=== PATIENT | female | born 1935 | race Caucasian/White ===

== ENCOUNTER 2019-03-24 11:45 | Emergency (ER) | payer OTHER ==
[~2019-03-24] VITALS: Ht 172.7 cm; Wt 83.9 kg
[2019-03-24] MEDS ORDERED: MOBIC7.5 MG PO (13:42)
[2019-03-24] MEDS ORDERED: ACETAMINOPHEN-1 EAC1 PO (13:42)
[2019-03-24 14:31] VITALS: BP 165/69
== END 2019-03-24 15:15 | disposition home or self-care (01) ==
LOC: ER 11:45
DX: S83.8X2A Sprain of other specified parts of left knee, initial encounter (principal); I10 Essential (primary) hypertension; E11.9 Type 2 diabetes mellitus without complications; E78.00 Pure hypercholesterolemia, unspecified; W18.39XA Other fall on same level, initial encounter; Y92.89 Other specified places as the place of occurrence of the external cause; Y93.89 Activity, other specified; Y99.8 Other external cause status

== ENCOUNTER 2020-04-21 13:00 | Inpatient (IN) | payer OTHER ==
[~2020-04-21] VITALS: Ht 157.5 cm; Wt 78.7 kg
[~2020-04-21 13:00] MED LIST: ACETAMINOPHEN-1 EAC1 PO; MOBIC7.5 MG PO
[2020-04-21 13:04] VITALS: BP 184/65
[2020-04-21 13:31] LABS: ABSOLUTE NEUTROPHILS 6.4 thou/uL (1.4-8.2); BASOPHILS 0.3 % (0.0-2.0); EOSINOPHILS 1.5 % (0.0-3.0); HEMATOCRIT 38.4 % (37.0-47.0); HEMOGLOBIN 13.4 gm/dL (12.0-15.0); LYMPHOCYTES 13.1 % (24.0-44.0); MCHC 34.9 g/dL (28.0-37.0); MCV 88.9 fL (80.0-100.0); MONOCYTES 8.9 % (1.0-8.0); PLATELET COUNT 216 thou/uL (150-400); POLYS 76.2 % (36.0-66.0); RBC 4.31 mil/uL (4.20-5.00); WBC 8.4 thou/uL (4.0-11.0)
[2020-04-21 13:43] LABS: ANION GAP 6 mmol/L (7-16); BUN 26 mg/dL (7-18); CALCIUM 9.3 mg/dL (8.5-10.1); CHLORIDE 100 mmol/L (98-107); CO2 32 mmol/L (21-32); GLUCOSE 127 mg/dL (74-106); POTASSIUM 3.3 mmol/L (3.5-5.1); SODIUM 138 mmol/L (136-145)
[2020-04-21 13:49] LABS: ALBUMIN 3.5 g/dL (3.4-5.0); SGOT 17 U/L (15-37); SGPT 19 U/L (30-65); TOTAL BILIRUBIN 0.5 mg/dL (0.2-1.0); TOTAL PROTEIN 7.5 g/dL (6.4-8.2); TROPONIN-I <0.06 ng/mL (<0.06)
[2020-04-21 14:02] LABS: APTT 23.1 Seconds (24.5-32.8); PROTIME 9.7 Seconds (9.3-11.4)
[2020-04-21] MEDS ORDERED: LISINOPRIL40 MG PO (15:34)
[2020-04-21] MEDS ORDERED: K-DUR10 MEQ PO (15:35)
[2020-04-21] MEDS ORDERED: LIPITOR 20 MG T20 M1 PO (15:35)
[2020-04-21] MEDS ORDERED: GLUCOPHAGE XR750 MG PO (15:35)
[2020-04-21] MEDS ORDERED: TRIAMTERENE-HC1 EAC3 PO (15:36)
[2020-04-21] MEDS ORDERED: MAGNESIUM500 MG PO (15:37)
[2020-04-21] MEDS ORDERED: ASPIR 8181 M1 PO (15:37)
[2020-04-21] MEDS ORDERED: MULTIVITAMINS1 EAC7 PO (15:37)
[2020-04-21 20:09] VITALS: BP 158/66
[2020-04-21 20:25] LABS: URINE BILIRUBIN NEGATIVE (Negative); URINE BLOOD NEGATIVE (Negative); URINE CLARITY CLEAR; URINE COLOR YELLOW; URINE GLUCOSE-RANDOM* NEGATIVE (Negative); URINE KETONES NEGATIVE (Negative); URINE LEUKOCYTES-REFLEX NEGATIVE (Negative); URINE NITRITE-REFLEX NEGATIVE (Negative); URINE PROTEIN (DIPSTICK) NEGATIVE (Negative); URINE UROBILINOGEN 0.2 E.U./dl (0.2-1.0)
[2020-04-21 21:15] VITALS: BP 147/85
--- NOTE | 2020-04-21 23:06 | NUR ---
PATIENT IS A NEW ADMISSION TO THE UNIT THIS SHIFT. SHE ARRIVED VIA CART FROM THE ER AND WAS TRANSFERRED TO THE BED WITHOUT INCIDENT. PATIENT IS ALERT AND ORIENTED AND ABLE TO PARTICIPATE IN ADMISSION. NIH TAKEN WITH PATIENT SCORING PRIMARILY FOR RIGHT SIDED WEAKNESS. NURSE TO COMPLETE ADMISSION PROCESS AND INITIATE PLAN OF CARE.
[2020-04-22 04:45] VITALS: BP 164/71
[2020-04-22 05:30] LABS: ANION GAP 10 mmol/L (7-16); BUN 26 mg/dL (7-18); CALCIUM 9.2 mg/dL (8.5-10.1); CHLORIDE 103 mmol/L (98-107); CHOLESTEROL 132 mg/dL (<200); CO2 27 mmol/L (21-32); GLUCOSE 142 mg/dL (74-106); HDL CHOLESTEROL 33 mg/dL (>40); LDL CHOLESTEROL 59 mg/dL (<100); POTASSIUM 3.5 mmol/L (3.5-5.1); SODIUM 140 mmol/L (136-145); TRIGLYCERIDE 204 mg/dL (<150); VLDL 41 mg/dL (<40)
[2020-04-22 05:32] LABS: SERUM ASSESSMENT Clear
--- NOTE | 2020-04-22 07:26 | EKG ---
[facility] [place] [address] ELECTROCARDIOGRAM REPORT Name: OZZY MONSIVAIS Room #: 210-P ADM IN M.R.#: [id number] Admission: 04/21/20 Attend Phys: Shirin Mosley MD Discharge: Date of : 37 Report #: [id number] THIS REPORT FOR: cc: Nahomy Cordero MD,Nahomy Ellis,Gerard Wall MD [facility] ~ THIS REPORT FOR: //name// [facility] ED Test Date: 2020-04-21 Test Time: 13:24:46 Pat Name: OZZY MONSIVAIS Department: Room: 210 Gender: F Staking Engineer: tasneem : 1935 Requested By: Robson Rai Order Number: [id number] MD: Gerard Ellis Measurements Intervals [place] Rate: 70 P: 59 AK: 167 QRS: 32 QRSD: 88 T: 84 QT: 401 QTc: 433 Interpretive Statements Sinus rhythm Atrial premature complexes Nonspecific ST segment abnormality Baseline wander in lead(s) V6 No previous ECG available for comparison Electronically Signed On 04-22-2020 7:25:53 CDT by Gerard Ellis [email or web address] <ELECTRONICALLY SIGNED> By: Gerard Ellis MD, [facility] 04/22/20 0725 1324 1324 Gerard Ellis MD, [facility] /EPI
[2020-04-22 08:00] VITALS: BP 177/87
--- NOTE | 2020-04-22 10:32 | 2DMMODE ---
[facility] [place] [address] 2 D/M-MODE ECHOCARDIOGRAM Name: OZZY MONSIVAIS Room #: 210-P ADM IN M.R.#: [id number] Admission: 04/21/20 Attend Phys: Shirin Mosley MD Discharge: Date of : 37 Report #: [id number] THIS REPORT FOR: cc: Nahomy Cordero MD, Paula V. MD Park, Jin S. MD ~ APPROVED REPORT Study performed: 04/22/2020 08:56:45 EXAM: Comprehensive 2D, Doppler, and color-flow Echocardiogram Patient Location: Bedside Room #: 210 Status: routine BSA: 1.86 HR: 62 bpm BP: 164/71 mmHg Rhythm: NSR Other Information Study Quality: Good Indications CVA/TIA Diabetes Hypertension/HDD Echo Enhancing Agent Indication: Rule out Shunt Agent(s) / Amount(s) Used: Agitated Saline 7 cc 2D Dimensions IVSd: 9.99 (7-11mm) LVOT Diam: 20.17 (18-24mm) LVDd: 51.72 mm PWd: 9.13 (7-11mm) Ascending Ao: 29.64 (22-36mm) LVDs: 37.67 (25-40mm) Aortic Root: 34.71 mm IVC: 17.00 mm Volumes Left Atrial Volume (Systole) Single Plane 4CH: 49.00 mL Single Plane 2CH: 41.66 mL LA ESV Index: 28.00 mL/m2 Aortic Valve [facility] [address] [place] [address] 2 D/M-MODE ECHOCARDIOGRAM Name: OZZY MONSIVAIS Room #: 210-P [facility] IN M.R.#: [id number] Admission: 04/21/20 Attend Phys: Shirin Mosley, Discharge: Date of : 37 Report #: [id number] AoV Peak Dru.: 1.69 m/s AO Peak Gr.: 11.46 mmHg LVOT Max P.23 mmHg LVOT Max V: 1.03 m/s SUDHA Vmax: 1.94 cm2 Mitral Valve E/A Ratio: 0.8 MV Decel. Time: 269.23 ms MV E Max Dru.: 1.05 m/s MV A Dru.: 1.26 m/s MV PHT: 78.08 ms IVRT: 152.25 ms Pulmonary Valve PV Peak Dru.: 1.09 m/s PV Peak Gr.: 4.76 mmHg Pulmonary Vein P Vein S: 0.54 m/s P Vein A: 0.37 m/s P Vein D: 0.31 m/s P Vein A Dur.: 115.3 msec P Vein S/D Ratio: 1.74 Tricuspid Valve TR Peak Dru.: 2.65 m/s TR Peak Gr.: 28.01 mmHg PA Pressure: 33.00 mmHg Left Ventricle The left ventricle is normal size. There is normal LV segmental wall motion. There is normal left ventricular wall thickness. The left ventricular systolic function is normal. The left ventricular ejection fraction is within the normal range. LVEF is 55-60%. Grade I - abnormal relaxation pattern. Right Ventricle The right ventricle is normal size. The right ventricular systolic function is normal. Atria The left atrium size is normal. Injection of bubbles documented no interatrial shunt. The right atrium size is normal. Aortic Valve The aortic valve is normal in structure. No aortic regurgitation is present. There is no aortic valvular stenosis. Mitral Valve [facility] [address] [place] [address] 2 D/M-MODE ECHOCARDIOGRAM Name: OZZY MONSIVAIS Room #: 210-P ADM IN .R.#: [id number] Admission: 04/21/20 Attend Phys: Shirin Mosley, Discharge: Date of : 37 Report #: [id number] The mitral valve is normal in structure. There is no mitral valve regurgitation noted. No evidence of mitral valve stenosis. Tricuspid Valve The tricuspid valve is normal in structure. There is trace tricuspid regurgitation. Estimated PAP 33 mmHg. There is mild pulmonary hypertension. Pulmonic Valve The pulmonary valve is normal in structure. Trace pulmonic regurgitation. Great Vessels The aortic root is normal in size. IVC is normal in size and collapses >50% with inspiration. Pericardium There is no pericardial effusion. <Conclusion> The left ventricle is normal size. There is normal left ventricular wall thickness. The left ventricular systolic function is normal. The right ventricle is normal size. The left atrium size is normal. Injection of bubbles documented no interatrial shunt. The aortic valve is normal in structure. There is no mitral valve regurgitation noted. There is trace tricuspid regurgitation. Estimated PAP 33 mmHg. <ELECTRONICALLY SIGNED> By: Deric Rodriguez MD 04/22/20 1031 1031 1031 Deric Rodriguez MD /INF
[2020-04-22 12:00] VITALS: BP 152/70
[2020-04-22 12:43] LABS: TSH 3.483 uIU/mL (0.358-3.740)
[2020-04-22 13:29] LABS: FOLIC ACID 76.1 ng/mL (8.6-58.9)
--- NOTE | 2020-04-22 15:45 | NUR ---
AAOX4. MRI SPINE TODAY. RIGHT EXTREMITIES NOTABLY WEAK, UNCOORDINATED. SR WITH PAC'S PER TELE. WORKING WITH PT, OT, AND SPEECH. DR. WATSON CONSULTED. ASSISTED TO BSC FOR LARGE BM. FALL PRECAUTIONS IN PLACE. WILL CONTINUE TO FOLLOW CLOSELY.
[2020-04-22 16:00] VITALS: BP 182/65
[2020-04-22 20:28] VITALS: BP 179/84
--- NOTE | 2020-04-23 03:24 | NUR ---
ASSUMED PATIENT CARE AT 1845. VITAL SIGNS STABLE WITH PATIENT HAVING NO COMPLAINTS OF NAUSEA. PATIENT DID COMPLAIN OF PAIN FREQUENTLY IN LEFT LOWER EXTREMITY WHICH WAS TREATED APPROPRIATELY THROUGH MEDICATIONS AND REPOSITIONING. INITIAL ASSESSMENT CONCERNED NURSE FOR POSSIBILITY OF DVT TO LEFT LEG. WARM TO THE TOUCH PATIENT COMPLAINED OF INTERMITTENT PAIN FROM LATE AFTERNOON ON. ULTRA SOUND OBTAINED WHICH SHOWED CLOT. ORDERS RECEIVED AND FOLLOWED. NIH HAS REMAINED AROUND FIVE WITH PATIENT SCORING FOR LEFT SIDED WEAKNESS ONLY. PATIENT IS FULLY ALERT AND ORIENTED AND ABLE TO PARTICIPATE IN CARE AND CALL FOR ASSISTANCE. CONTINUE PLAN OF CARE.
[2020-04-23 04:45] VITALS: BP 189/97
[2020-04-23 05:40] LABS: CALCIUM 8.7 mg/dL (8.5-10.1)
[2020-04-23 05:49] LABS: HEMATOCRIT 37.1 % (37.0-47.0); HEMOGLOBIN 12.4 gm/dL (12.0-15.0); MCH 30.3 pg (26.0-34.0); MCHC 33.4 g/dL (28.0-37.0); MCV 90.7 fL (80.0-100.0); RBC 4.09 mil/uL (4.20-5.00); RDW 13.4 % (10.5-14.5); WBC 13.1 thou/uL (4.0-11.0)
[2020-04-23 08:00] VITALS: BP 169/74
[2020-04-23 12:05] VITALS: BP 191/97
--- NOTE | 2020-04-23 15:45 | NUR ---
Patient admits from home with CVA. Sp with dtr via phone as patient not answering phone in room. Patient resides in home with spouse. 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 She drives. Son and sister in law live nearby. Patient has steps in home and no difficulty consumer services consultant. 5N in process of eval. Dtr reports they have "medical people" in family and may not choose [facility]. Have left [employer] list in room if acute rehab not an option.
[2020-04-23 16:00] VITALS: BP 158/70
--- NOTE | 2020-04-23 16:21 | NUR ---
PATIENT SEEN FOR REHAB CONSULT THIS DATE BY CLAUDINE GARVEY NP WITH DR. WATSON. AT THIS TIME WILL CONTINUE TO FOLLOW AND ASSESS FOR REHAB NEEDS/APPROPRIATENESS. SPOKE WITH PEER EDUCATOR THIS AFTERNOON AND PATIENT'S DAUGHTER IS INVESTIGATING OTHER REHAB OPTIONS AND MAY WISH TO DISCHARGE TO ANOTHER REHAB FACILITY.
--- NOTE | 2020-04-23 19:08 | NUR ---
ASSESSMENT DOCUMENTED, C/O RT KNEE PAIN MEDICATED AND DR RINALDI NOTIFIED. NEW ORDERS FOR PAIN MEDS EXECUTED, AND PATIENT REPORTED RELIEF. BP 191/97, PRN MEDS GIVEN. Q2 POSITONED WITH PILLOW. ORTHO SEEN THE PATIENT, PERFORMED FLUID ASPIRATION RT KNEE, AND FLUIDS SENT TO LAB. WILL CONTINUE WITH POC.
[2020-04-23 19:38] VITALS: BP 137/63
[2020-04-24 00:15] VITALS: BP 150/69
[2020-04-24 04:36] VITALS: BP 163/78
--- NOTE | 2020-04-24 06:05 | NUR ---
PT RESTING WITH LE ELEVATED, PRN PAIN MEDS GIVEN FOR C/O R KNEE PAIN, VSS, VOIDING PER BED HUYNH, WILL CON'T TO MONITOR PER PPOC.
[2020-04-24 06:32] LABS: CALCIUM 8.9 mg/dL (8.5-10.1); CREATININE 0.9 mg/dL (0.6-1.0); POTASSIUM 3.5 mmol/L (3.5-5.1)
[2020-04-24 07:07] VITALS: BP 201/93
[2020-04-24 09:46] LABS: BF NUCLEATED CELLS 36990 /mm3; BF RBC 14221 /mm3
[2020-04-24 11:11] VITALS: BP 193/93
--- NOTE | 2020-04-24 12:02 | HC ---
[facility] [place] [address] CONSULTATION Name: OZZY MONSIVAIS Room #: 210-P ADM IN M.R.#: [id number] Admission: 04/21/20 Attend Phys: Shirin Mosley MD Discharge: Date of : 37 Report #: [id number] THIS REPORT FOR: cc: Nahomy Cordero MD,Fritz Infante MD, MD ~ CC: Nahomy Cordero Viji Robledost DATE OF SERVICE: 04/21/2020 HISTORY OF PRESENT ILLNESS: This is an 85-year-old female patient who was evaluated by me for the possibility of stroke. The patient gives a history that she went to sleep last night and woke up this morning with the right leg and right arm not working. It does not look like she had much speech difficulty with it. The symptoms continued and then she came to the hospital with these symptoms. REVIEW OF SYSTEMS: Indicates she denies any prior history of stroke, but I reviewed the CT scan, it does demonstrate the stroke. It is in unusual location and they looked old, but the patient's symptoms are new. She does have a history of diabetes and hypertension. She denies any other history like visual disturbances, ENT problem, cardiac, respiratory, GI, , musculoskeletal, constitutional, dermatological, hematological, psychiatric, throat, allergic symptom associated with present symptomatology. PAST MEDICAL HISTORY: According to her is negative for any stroke. FAMILY HISTORY: Negative for any early age stroke. SOCIAL HISTORY: She does not smoke or drink any alcohol. PHYSICAL EXAMINATION: Indicates she is alert. She can follow simple commands. Her speech looks intact. It looks like she described that the memory and fund of knowledge is at her baseline, but I do not know what her baseline is because some of the things she cannot describe well, but I did not formally check the memory and I need to do it some other time because she was going for MRI. Cranial nerve examination, the best I can tell, looks mostly unremarkable. 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 She can barely do malgrr-ig-xers. There is no meningeal sign. There is no carotid bruit. Cardiac examination is unremarkable. She has no respiratory difficulty. Her blood pressure is 148/74, respiration is 16, pulse is 74. LABORATORY DATA: WBC count is 8.4. Potassium is trace, low at ____. GFR is 53. CT was reviewed and described as above. Pulses are difficult to feel. I [facility] [address] [place] [address] CONSULTATION Name: OZZY MONSIVAIS Room #: 210-P [facility] IN M.R.#: [id number] Admission: 04/21/20 Attend Phys: Shirin Mosley MD Discharge: Date of : 37 Report #: [id number] could not look at the fundus. IMPRESSION: Pretty unusual presentation. She does appear to have prior strokes, but she has no knowledge of that. She has a pretty severe ataxia. She has pretty significant weakness in the right upper and right lower extremity because there is a drift in addition to ataxia. She needs further workup. They thought the finding on the CT may be just incidental and we thought we need to do an MRI. I discussed with the patient and subsequently son came and I discussed with him. I discussed MRI. I discussed with her the option of doing it with and without contrast or just without contrast. I discussed with them the potential side effect of contrast, especially allergic reaction as well as irreversible dermatological reaction. They understood all those. They are willing to get the contrast MRI, which will be best for her and strokes, if they are strokes, are in unusual distributions, so I will get an MRV also. Those things are done, but the films are not available and we need to look at those films to see what those shows and further management will depend upon the outcome of those testing. The patient is not a candidate for any TPA because symptoms happened way before 3 hours. She may not be a candidate for anything and probably is not, but we need to wait for the MRI whose results are pending and we are waiting for that. Thank you very much for this referral and we will follow this patient along with you. About 50 minutes of time was spent taking care of this patient and majority was coordinating and counseling the patient. <ELECTRONICALLY SIGNED> By: Fritz Bassett MD 04/24/20 1202 181 24 Fritz Bassett MD /nt
[2020-04-24 12:12] LABS: SOURCE KNEE JOINT; TOTAL VOLUME 30 mL
[2020-04-24 12:13] LABS: BF NEUTROPHILS 90 %; CLARITY CLOUDY; COLOR DK YELLOW
[2020-04-24 12:19] LABS: BF MACROPHAGE 6 %
[2020-04-24 15:04] VITALS: BP 174/84
--- NOTE | 2020-04-24 17:02 | NUR ---
ASSUMED CARE 0700. PT ALERT X4, NIH INTERVENTIONS IN PLACE. JACEY CHEST PAIN. PAIN TO RIGHT LEG MANAGED WITH MEDICATIONS. TREATING ELEVATED BP WITH PRN MEDS WITH NOTICATIONS TO DR RINALDI. ORTHO LIKEY TO ASPIRATE KNEE THIS EVENING. CONTINENT WITH BEDPAN. NO BM NOTED TODAY. LIMITED ROM TO BILATERAL LE. CALL LIGHT IN REACH. BEDSIDE.
[2020-04-24 19:15] LABS: BF CRYSTALS No Crystals seen; CLARITY TURBID; COLOR RED; SOURCE SYNOVIAL
[2020-04-24 19:34] LABS: BF NUCLEATED CELLS 14987 /mm3; BF RBC 6595013 /mm3
[2020-04-24 19:47] VITALS: BP 209/94
[2020-04-24 19:58] LABS: BF MACROPHAGE 7 %; BF NEUTROPHILS 88 %
--- NOTE | 2020-04-25 03:07 | NUR ---
ASSUMED CARE OF PATIENT AT 1900. PATIENT CONTINUES TO C/O PAIN IN RIGHT KNEE. ADMINISTERED PRN PAIN MEDICATION ORDERED AND CONTINUED APPLYING ICE. PATIENT BLOOD PRESSURE ELEVATED AT 1999 ASSESSMENT.ADMINISTERED HYDRALAZINE ORDERED. WILL CONTINUE TO MONITOR.
[2020-04-25 03:25] VITALS: BP 195/89
[2020-04-25 08:00] VITALS: BP 162/86
[2020-04-25 12:00] VITALS: BP 104/60
--- NOTE | 2020-04-25 14:45 | NUR ---
Spoke with patient and spouse regarding dc master planner. Reviewed patient cannot tolerate 5N and possble need for skilled. Reviewed skilled [employer] list referral to [facility].
[2020-04-25 15:58] VITALS: BP 160/78
[2020-04-25 16:07] LABS: ANTI-DNA SCREEN 3 IU/mL (0-9); ANTI-RNP 0.3 AI (0.0-0.9)
--- NOTE | 2020-04-25 18:15 | NUR ---
ASSUMED CARE 0700. PT ALERT X4, PAIN MANAGED WITH MEDICATIONS. DENIES SOB. DENIES CHEST PAIN. PT PARTICIPATED WITH PT AND OT TO EVAL. PT AND VOICED CONCERNS REGARDING DISHCHARGING HOME WITH HH VERSES DC TO REHAB PRIOR TO RETURNING HOME. CM SPOKE EXTENSIVELY WITH REGARDING DISCHARGE. FLUIDS ENCOURAGED. CALL LIGHT AND PERSONAL ITEMS IN REACH.
[2020-04-25 20:50] VITALS: BP 158/72
--- NOTE | 2020-04-26 03:26 | NUR ---
ASSUMED CARE OF PATIENT AT 1900. PATIENT REPORTED NO PAIN AT INITIAL ASSESSMENT AND STATED SHE HAS ONLY BEEN HAVING PAIN WHEN SHE MOVES HER RIGHT KNEES. SHORTLY BEFORE MIDNIGHT PATIENT DID RATE PAIN 6/10 IN RIGHT KNEE AFTER MOVING TO USE RESTROOM. ADMINISTERED PRN NORCO ORDERED. DID NOT HAVE TO TREAT PATIENT THIS SHIFT FOR HIGH SBP. PATIENT IS PROGRESSING TOWARDS GOALS.
[2020-04-26 04:30] VITALS: BP 173/78
[2020-04-26 08:08] VITALS: BP 169/91
--- NOTE | 2020-04-26 11:27 | NUR ---
FAXED CLINICAL UPDATE TO [facility] RECEIVED CONFIRMATION AND LEFT MSG WITH FARIBA IN ADM.
[2020-04-26 12:24] VITALS: BP 186/93
--- NOTE | 2020-04-26 14:04 | NUR ---
FAXED REFERRAL TO [facility] SPOKE WITH FARIBA IN ADM SHE RECEIVED REFERRAL WILL REVIEW PT IS DC READY AND WILL NEED INS. AUTH.
--- NOTE | 2020-04-26 14:31 | NUR ---
AURELIO reviewed chart and spoke with attending physician. Pt is progressing towards goals for discharge. Referral sent to [facility] for review. Will need insurance authorization. AURELIO met with pt at bedside to provide update. Pt is aware and agreeable with discharge plan. AURELIO spoke with [facility] liaison. Pt will need a COVID-19 test ordered. Authorization for skilled unlikely to be obtained over the weekend. AURELIO is following to assist as needed with discharge planning.
[2020-04-26 17:45] VITALS: BP 192/100
--- NOTE | 2020-04-26 18:04 | NUR ---
ASSUMED CARE 0700. ALERT X4, PROGRESSING TOWARDS GOALS. PT UP TO BEDSIDE RECLINER WITH OT. PAIN MANAGED WITH MEDICATIONS. RIGHT DRAINS WITH TRANSFER. DRESSING APPLIED. PT AGREEABLE TO DC TO REHAB. NOTED FROM CM NOTED PT WILL NEED A NEGATIVE COVID. CALLS FOR ASSISTANCE.
[2020-04-26 19:30] VITALS: BP 157/79
[2020-04-27] VITALS (8 sets, daily range): BP systolic 117–182; BP diastolic 46–85
--- NOTE | 2020-04-27 05:30 | NUR ---
ASSESSMENTS CHARTED, MEDS CHARTED GIVEN. PATIENT RESTING IN BED DURIN SHIFT. HAD BOWEL MOVEMENT. USING BEDPAN DURING SHIFT. CONTINUED PAIN IN RIGHT KNEE WHEN MOVED. CONTINUED HIGH BLOOD PRESSURE DURING SHIFT. HYDRALAZINE GIVEN CHARTED. FALL PRECAUTIONS IN PLACE DURING SHIFT,
--- NOTE | 2020-04-27 15:04 | NUR ---
RECEIVED PT'S CARE AROUND 0720; PT. ON BED; RESTING WITH EYES CLOSED; EQUAL CHEST RISING NOTICED; SA ON THE MONITOR; DURING AM ASSESSMENT AOX4; C/O PAIN OVER R. KNEE; PRN PAIN MEDICATION GIVEN WITH AM MEDICATIONS; EDUCATED ABOUT THE IMPORTANCE OF GETTING UP FROM BED; ST. UNDERSTANDING; ELEVATED BP; SCHEDULED MEDICATION GIVEN; RE-ASSESSMENT BP ON THE 150s; EDUCATED ABOUT PAIN MANAGEMENT & ELEVATED BP; ST. UNDERSTANDING; UP TO CHAIR WITH PT.; PER OT REPORT PT. REFUSED TO GET UP FROM CHAIR & DO SOME THERAPY; NEURO ASSESSMENT PER CHART; MONITORING; ASSESSMENT CHARGED; FOLLOWING POC; WILL PASS ON REPORT;
--- NOTE | 2020-04-27 23:02 | NUR ---
ASSESSMENT CHARTED, MEDS CHARTED GIVEN. PATIENT RESTING IN BED DURING SHIFT. USING BEDPAN NEEDED. PLAN OF CARE IS TO TRANSFER TO [facility] ON WEDNESDAY. DENIED PAIN WHEN NOT MOVING.
[2020-04-28] VITALS (7 sets, daily range): BP systolic 157–194; BP diastolic 57–90
--- NOTE | 2020-04-28 07:18 | NUR ---
ASSUME CARE 2300. PT RESTING WITH NO DISTRESS NOTED. APACED ON MONITOR WITH UINDERLYING SR. INTERMITTENT PAIN ON RIGHT KNEE WITH MOVEMENT. BP RUNS HIGH/ HYDRALAZINE TO STABILIZE BP. NO OTHER DISTRESS NOTED. ASSESSMENT AAS CHARTED. PROGRESSING WELL WITH POC. PLAN IS POSSIBLE DISCHAGER TO SNF TODAY. WILL CONTINUE TO MONITOR AND FOLLOW WIHT POC
--- NOTE | 2020-04-28 16:34 | NUR ---
RECEIVED PT'S CARE AROUND 0730; PT. ON BED; AOX4; ST. HAVING SOME PAIN OVER R. KNEE; REFUSED PRN PAIN MEDICATION; REMAINED ABOUT PAIN MANAGEMENT; ST. UNDERSTANDING; DURING AM ASSESSMENT PT. C/O R. KNEE PAIN; PRN PAIN MEDICATION GIVEN WITH AM MEDICATIONS; RE-ASSESSMENT ST. DECREASE PAIN; EDUCATED ABOUT TURNING FROM SIDE TO SIDE; ST. UNDERSTANDING; SA ON THE MONITOR; MONITORING; INSULIN REPLACED PER PROTOCOL; ASSESSMENT CHARGED; FOLLOWING POC; WILL PASS ON REPORT;
[2020-04-29 04:14] VITALS: BP 157/72
[2020-04-29 07:30] VITALS: BP 164/78
--- NOTE | 2020-04-29 07:31 | NUR ---
SLEPT MOST OF SHIFT PAST HS PAIN MEDICATIONS GIVEN. TURNS SELF IN BED. RIGHT KNEE WITH SEAN WRAP IN PLACE. WORKING ON GOALS AND PLAN OF CARE FOR NOC. PROGRESSING TOWARDS DISCHARGE GOALS TO [facility]. STATES RIGHT KNEE IS BETTER SINCE ASPIRATION AND STERIOD SHOTS. RIGHT HAND WITH MODERATE EGG WORKER BUT SLOW AND RIGHT ARM REMAINS WITH DRIFT. CANNOT LIFT RIGHT LEG OFF BED. CONTINUE TO ASSES CLOSELY.
--- NOTE | 2020-04-29 12:59 | NUR ---
Patient to have COVID test prior to skilled care at [facility]. [facility] has auth once COVID results and orders for discharge.
--- NOTE | 2020-04-29 16:09 | NUR ---
Awaiting covid results for dc to [facility]. Rec results sp with [facility] admissions who reports need to plan for dc in am. Updated phys and RN.
--- NOTE | 2020-04-29 16:57 | NUR ---
ASSESSMENT CHARTED. PT ALERT AND ORIENTED WITH FORGETFULNESS. PRN PAIN MED GIVEN FOR RIGHT KNEE PAIN WITH PARTIAL RELIEF. UP IN THE CHAIR THIS SHIFT. EVALUATED BY PT AND OT. PLAN TO BE DISCHARGE IN AM TO [facility]. PROGRESSING WELL TOWARDS DISCHARGE GOAL.
[2020-04-29 17:00] VITALS: BP 155/68
[2020-04-29 19:55] VITALS: BP 164/78
--- NOTE | 2020-04-30 04:10 | NUR ---
A/O X 4.PAIN WELL CONTROLLED.DENIES NEEDS.MONITOR SHOWS SA.POC CONTINUED.
[2020-04-30 05:30] VITALS: BP 173/63
[2020-04-30 06:00] LABS: HEMATOCRIT 30.8 % (37.0-47.0); HEMOGLOBIN 10.3 gm/dL (12.0-15.0); MCH 30.7 pg (26.0-34.0); MCHC 33.5 g/dL (28.0-37.0); MCV 91.6 fL (80.0-100.0); RBC 3.37 mil/uL (4.20-5.00); RDW 13.2 % (10.5-14.5); WBC 12.1 thou/uL (4.0-11.0)
[2020-04-30 06:10] VITALS: BP 165/74
[2020-04-30 06:33] LABS: CREATININE 0.7 mg/dL (0.6-1.0); MAGNESIUM 1.6 mg/dL (1.8-2.4); POTASSIUM 3.8 mmol/L (3.5-5.1)
[2020-04-30 07:14] VITALS: BP 171/72
[2020-04-30] MEDS ORDERED: ACCUPRIL40 MG PO (10:31)
[2020-04-30] MEDS ORDERED: XARELTO20 MG PO (10:31)
[2020-04-30] MEDS ORDERED: LIPITOR 20 MG T20 M1 PO (10:31)
[2020-04-30] MEDS ORDERED: MIRALAX17 GM PO (10:31)
[2020-04-30] MEDS ORDERED: TRAMADOL 50 MG50 MG PO (10:31)
[2020-04-30] MEDS ORDERED: HYDROCODON-ACE1 EAC7 PO (10:31)
[2020-04-30] MEDS ORDERED: ACETAMINOPHEN325 M1 PO (10:31)
[2020-04-30] MEDS ORDERED: MAGNESIUM400 MG PO (10:31)
[2020-04-30] MEDS ORDERED: ZETIA10 MG PO (10:31)
[2020-04-30] MEDS ORDERED: XARELTO15 MG PO (10:31)
[2020-04-30] MEDS ORDERED: FOLIC ACID1 MG PO (10:31)
[2020-04-30 10:59] VITALS: BP 185/89
--- NOTE | 2020-04-30 13:00 | NUR ---
PT CARE ASSUMED APPROX 0700. ASSESSMENT CHARTED. PT DENIES PAIN AND SOA. VSS. UP WITH MOD ASSIST STAND PIVOT. PT DRESSED AND REPORTS THAT ALL BELONGINGS ARE IN HER POSSESSION. PT'S REPORTS WELL. PT TO DISCHARGE AT THIS TIME TO FACILITY. REPORTS CALLED TO NURSE THERE. SHE DENIED QUESTIONS OR CONCERNS REGARDING PT'S TRANSFER OR POC. PT AND FAMILY DENIES WELL. CHART COPIED TO BE SENT. NO DISTRESS NOTED.
--- NOTE | 2020-04-30 13:02 | NUR ---
patient to dc to [facility] skilled today. Chart copied. van for 1300. Notfied spouse and RN. Faxed orders and placed in chart copy with COVID testing.
--- NOTE | 2020-04-30 13:14 | NUR ---
DR ANGUIANO AWARE PT'S LOW MAG LEVEL. NO NEW ORDERS.
== END 2020-04-30 14:02 | DRG 65 ==
LOC: ER 13:00 → EROBS 19:30 → 2N 19:30
PROVIDERS: Emergency Medicine; Hospitalist; Internal Medicine Geriatric Medicine; Nurse Practitioner Family; Orthopaedic Surgery Sports Medicine; ADMIT Internal Medicine; ATTEND Internal Medicine
DX: I63.9 Cerebral infarction, unspecified (principal); I82.441 Acute embolism and thrombosis of right tibial vein; M17.11 Unilateral primary osteoarthritis, right knee; D32.9 Benign neoplasm of meninges, unspecified; I10 Essential (primary) hypertension; E11.9 Type 2 diabetes mellitus without complications; R27.0 Ataxia, unspecified; E78.00 Pure hypercholesterolemia, unspecified; E78.5 Hyperlipidemia, unspecified; Z66 Do not resuscitate; E53.8 Deficiency of other specified B group vitamins; G47.00 Insomnia, unspecified; R32 Unspecified urinary incontinence; E87.6 Hypokalemia; M25.461 Effusion, right knee; D69.2 Other nonthrombocytopenic purpura; Z79.82 Long term (current) use of aspirin; Z79.899 Other long term (current) drug therapy; Z20.828 Contact with and (suspected) exposure to other viral communicable diseases
CPT/HCPCS: 10081